=== PATIENT | female | born 1940 | race Caucasian/White ===

== ENCOUNTER → 2017-08-08 | Outpatient (CLI) | payer BC | LOC: M.RAD 15:11 | DX: M47.896 Other spondylosis, lumbar region (principal); M47.894 Other spondylosis, thoracic region; M85.89 Other specified disorders of bone density and structure, multiple sites; M41.86 Other forms of scoliosis, lumbar region; Z78.0 Asymptomatic menopausal state ==

== ENCOUNTER → 2018-07-08 | Outpatient (CLI) | payer BC | LOC: M.RAD 16:46 | DX: J06.9 Acute upper respiratory infection, unspecified (principal) ==